=== PATIENT | female | born 1990 | race African-American/Black ===

== ENCOUNTER 2018-02-05 17:30 | Emergency (ER) | payer SELFPAY ==
[2018-02-05 18:12] LABS: Urine Blood NEGATIVE (NEG); Urine Glucose NEGATIVE (NEG); Urine Protein NEGATIVE (NEG); Urine Specific Gravity 1.015 (1.005-1.030)
[2018-02-05] MEDS ORDERED: KETOROLAC 30 MG/ML INJ ONE (18:37)
[2018-02-05] MEDS ORDERED: ONDANSETRON 4 MG/2 ML VIAL ONE (18:37)
[2018-02-05 19:07] LABS: Absolute Lymphocytes (CBC) 0.9 K/uL (0.7-4.9); Absolute Monocytes 0.6 K/uL (0.1-1.3); Absolute Neutrophil 5.7 K/uL (1.8-8.0); Basophils % 0.4 % (0-1.3); Eosinophils % 0.8 % (0-4.4); Lymphocytes % 12.9 % (15.3-44.8); MCH 30.8 pg (27.0-35.0); MCV 88.6 fL (80-100); MPV 8.8 fL (7.6-11.3); Monocytes % 7.8 % (3.3-12.3); RBC Red Blood Cell Count 4.18 M/uL (3.86-4.86)
[2018-02-05 19:22] LABS: ALT/SGPT 15 U/L (12-78); AST/SGOT 15 U/L (15-37); Albumin 3.2 g/dL (3.4-5.0); Alkaline Phosphatase 64 U/L (45-117); Amylase Level 58 U/L (25-115); BUN Blood Urea Nitrogen 10 mg/dL (7-18); Bicarbonate 26 mmol/L (21-32); Bilirubin Direct < 0.1 mg/dL (0-0.2); Bilirubin Total 0.2 mg/dL (0.2-1.0); Glucose Level 86 mg/dL (74-106); Lipase 105 U/L (73-393); Potassium 3.7 mmol/L (3.5-5.1); Protein, Total 7.3 g/dL (6.4-8.2); Sodium Level 139 mmol/L (136-145)
[2018-02-05] MEDS ORDERED: PANTOPRAZOLE 40 MG INJ ONE (19:40)
--- NOTE | 2018-02-05 19:46 | RAD REPORT ---
EXAM DESCRIPTION: US - Abdomen Exam Limited - 02/05/2018 6:36 pm CLINICAL HISTORY: Abdominal pain COMPARISON: Abdomen ultrasound October 2015 FINDINGS: No gallstones, sludge or other abnormalities within the gallbladder lumen. There is no wal l thickening or pericholecystic fluid. No common duct stone or biliary tree dilatation identified. IMPRESSION: Normal gallbladder and biliary tree ultrasound.
--- NOTE | 2018-02-05 20:04 | ER ---
Nurse's Notes [facility] Name: Ada Khanna Age: 27 yrs Sex: Female : 1990 Arrival Date: 02/05/2018 Time: 17:33 Bed 14 Private MD: None, None Diagnosis: Upper abdominal pain, unspecified Presentation: 02/05 17:33 Presenting complaint: Patient states: abd tightness across the upper area. c/o cough sv and lower back pain and left middle back pain. Transition of care: patient was not received from another setting of care. Onset of symptoms was February 05, 2018. Care prior to arrival: None. 17:33 Method Of Arrival: Ambulatory sv 17:33 Acuity: RICHARD 3 sv 18:49 Risk Assessment: Do you want to hurt yourself or someone else? Patient reports no ph desire to harm self or others. Initial Sepsis Screen: Does the patient meet any 2 criteria? No. Patient's initial sepsis screen is negative. Does the patient have a suspected source of infection? No. Patient's initial sepsis screen is negative. 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 - Social history:: Smoking status: Patient uses tobacco products, smokes one-half pack cigarettes per day. - Ebola Screening: : No symptoms or risks identified at this time. Screenin:48 Abuse screen: Denies threats or abuse. Denies injuries from another. Nutritional ph screening: No deficits noted. Tuberculosis screening: No symptoms or risk factors identified. Fall Risk None identified. Assessment: 18:00 General: Appears in no apparent distress. uncomfortable, well groomed, Behavior is ph calm, cooperative, appropriate for age, Denies fever. Pain: Complains of pain in epigastric area Pain radiates to left upper quadrant and right upper quadrant. Neuro: Level of Consciousness is awake, alert, obeys commands, Oriented to person, place, time, situation. Cardiovascular: Capillary refill < 3 seconds in bilateral fingers Patient's skin is warm and dry. Respiratory: Airway is patent Respiratory effort is even, unlabored. GI: Abdomen is flat, non-distended, Bowel sounds present X 4 quads. Abd is soft X 4 quads Abdomen is tender to palpation in epigastric area and right upper quadrant Reports upper abdominal pain, epigastric pain, nausea, Patient currently denies diarrhea, vomiting. : Denies burning with urination, urinary frequency. Derm: Skin is intact, is healthy with good turgor, Skin is pink, warm \T\ dry. Musculoskeletal: Circulation, motion, and sensation intact. Range of motion: limited in all extremities. 19:15 General: Appears in no apparent distress. uncomfortable, Behavior is calm, cooperative, jb4 appropriate for age. Pain: Complains of pain in low back area, right upper quadrant and left upper quadrant Pain does not radiate. Neuro: Level of Consciousness is awake, alert, obeys commands, Oriented to person, place, time, situation. Cardiovascular: Patient's skin is warm and dry. Respiratory: Airway is patent Respiratory effort is even, unlabored, Respiratory pattern is regular, symmetrical. GI: Abdomen is flat, non-distended, Bowel sounds present X 4 quads. Abd is soft X 4 quads Abdomen is tender to palpation in right upper quadrant and left upper quadrant Reports upper abdominal pain, epigastric pain, nausea, Patient currently denies diarrhea, vomiting. :. : No signs and/or symptoms were reported regarding the genitourinary system. Derm: Skin is intact, Skin is pink, warm \T\ dry. Musculoskeletal: Circulation, motion, and sensation intact. 20:19 Reassessment: Patient appears in no apparent distress at this time. Patient and/or jb4 family updated on plan of care and expected duration. Pain level reassessed. Patient is alert, oriented x 3, equal unlabored respirations, skin warm/dry/pink. D/c \T\ F/u instructions to pt. Denies questions or concerns. Patient states feeling better. Vital Signs: 17:34 BP 115 / 98; Pulse 88; Resp 18; Temp 98; Pulse Ox 100% ; Weight 77.11 kg; Height 5 ft. sv 7 in. (170.18 cm); Pain 0/10; 20:00 BP 112 / 75; Pulse 73; Resp 18; Pulse Ox 100% on R/A; jb4 17:34 Body Mass Index 26.63 (77.11 kg, 170.18 cm) sv ED Course: 17:33 Patient arrived in ED. sb2 17:33 None, None is Private Physician. sb2 17:33 Triage completed. sv 17:35 Arm band placed on right wrist. sv 17:36 Kath[facility]C [facility]. kb 17:36 Pacheco Bhatti MD is Attending Physician. kb 17:41 Ursula Carranza RN is Primary Nurse. ph 17:55 Urine collected: clean catch specimen, clear, charli colored, Amount Voided: 100mL. jp3 18:35 Inserted saline lock: 20 gauge in right antecubital area, using aseptic technique. ph Blood collected. 18:36 US Abdomen Limited In Process Unspecified. EDMS 18:49 Patient has correct armband on for positive identification. Placed in gown. Bed in low ph position. Call light in reach. Side rails up X 1. Pulse ox on. NIBP on. Warm blanket given. Pillow given. 19:19 George Núñez, RN is Primary Nurse. jb4 20:00 No provider procedures requiring assistance completed. IV discontinued, intact, jb4 bleeding controlled. Administered Medications: 18:08 Not Given (Physician Discretion): Aspirin Chewable Tablet 324 mg PO once; 81 mg tablets kb x 4 18:40 Drug: TORadol 30 mg Route: IVP; Site: right antecubital; ph 19:41 Follow up: Response: No adverse reaction; Pain is decreased jb4 18:40 Drug: Zofran 4 mg Route: IVP; Site: right antecubital; ph 19:42 Follow up: Response: No adverse reaction jb4 19:41 Drug: ProTONIX 40 mg Route: IVP; Site: right antecubital; jb4 20:22 Follow up: Response: No adverse reaction; Pain is decreased jb4 Outcome: 20:03 Discharge ordered by . kb 20:15 Discharged to home ambulatory. jb4 20:15 Condition: stable 20:15 Discharge instructions given to patient, family, Instructed on discharge instructions, follow up and referral plans. medication usage, Demonstrated understanding of instructions, follow-up care, medications, Prescriptions given X 2. 20:23 Patient left the ED. jb4 Signatures: Dispatcher [employer] EDMS Kathi Mercer FNP-C FNP-Shy Trejo RN RN sv Ursula Carranza RN RN George Núñez, RN RN jb4 Nasra Hernandez sb2 Zhang Sorenson jp3 Corrections: (The following items were deleted from the chart) 17:35 17:33 Presenting complaint: Patient states: abd tightness across the upper area. c/o sv cough. sv 17:35 17:33 Acuity: RICHARD 4 sv sv 20:22 20:19 Reassessment: Patient appears in no apparent distress at this time. Patient jb4 and/or family updated on plan of care and expected duration. Pain level reassessed. Patient is alert, oriented x 3, equal unlabored respirations, skin warm/dry/pink. Patient states feeling better. jb4
--- NOTE | 2018-02-05 20:04 | EDPHYS ---
Physician Documentation [facility] Name: Ada Khanna Age: 27 yrs Sex: Female : 1990 Arrival Date: 02/05/2018 Time: 17:33 Bed 14 Private MD: None, None ED Physician Pacheco Bhatti HPI: 02/05 18:23 This 27 yrs old Black Female presents to ER via Ambulatory with complaints of Abdominal kb Pain, Back Pain. 18:23 The patient presents with abdominal pain in the upper abdomen. Onset: The kb symptoms/episode began/occurred this morning. The symptoms radiate to back. Associated signs and symptoms: Pertinent positives: nausea and vomiting, Pertinent negatives: anorexia, blood in stools, chest pain, constipation, diarrhea, dysuria, fever, headache, hematuria, palpitations, shortness of breath, vaginal discharge, vomiting blood. The symptoms are described as constant. Modifying factors: The symptoms are alleviated by nothing, the symptoms are aggravated by nothing. Severity of pain: At its worst the pain was moderate in the emergency department the pain is unchanged. The patient has experienced similar episodes in the past, a few times, today's symptoms are similar. The patient has not recently seen a physician. 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 - Social history:: Smoking status: Patient uses tobacco products, smokes one-half pack cigarettes per day. - Ebola Screening: : No symptoms or risks identified at this time. ROS: 18:26 Constitutional: Negative for fever, chills, and weight loss, Cardiovascular: Negative kb for chest pain, palpitations, and edema, Respiratory: Negative for shortness of breath, cough, wheezing, and pleuritic chest pain, Back: Negative for injury and pain, : Negative for injury, bleeding, discharge, and swelling, MS/Extremity: Negative for injury and deformity, Skin: Negative for injury, rash, and discoloration, Neuro: Negative for headache, weakness, numbness, tingling, and seizure. 18:26 Abdomen/GI: Positive for abdominal pain, nausea and vomiting, Negative for diarrhea, constipation, abdominal cramps, abdominal distension, anorexia. Exam: 18:26 Constitutional: This is a well developed, well nourished patient who is awake, alert, kb and in no acute distress. Head/Face: Normocephalic, atraumatic. Chest/axilla: Normal chest wall appearance and motion. Nontender with no deformity. No lesions are appreciated. Cardiovascular: Regular rate and rhythm with a normal S1 and S2. No gallops, murmurs, or rubs. Normal PMI, no JVD. No pulse deficits. Respiratory: Lungs have equal breath sounds bilaterally, clear to auscultation and percussion. No rales, rhonchi or wheezes noted. No increased work of breathing, no retractions or nasal flaring. Back: No spinal tenderness. No costovertebral tenderness. Full range of motion. Skin: Warm, dry with normal turgor. Normal color with no rashes, no lesions, and no evidence of cellulitis. MS/ Extremity: Pulses equal, no cyanosis. Neurovascular intact. Full, normal range of motion. Neuro: Awake and alert, GCS 15, oriented to person, place, time, and situation. Cranial nerves II-XII grossly intact. Motor strength 5/5 in all extremities. Sensory grossly intact. Cerebellar exam normal. Normal gait. 18:26 Abdomen/GI: Inspection: abdomen appears normal, Bowel sounds: normal, in all quadrants, Palpation: soft, in all quadrants, moderate abdominal tenderness, in the epigastric area, right upper quadrant and left upper quadrant. Vital Signs: 17:34 BP 115 / 98; Pulse 88; Resp 18; Temp 98; Pulse Ox 100% ; Weight 77.11 kg; Height 5 ft. sv 7 in. (170.18 cm); Pain 0/10; 20:00 BP 112 / 75; Pulse 73; Resp 18; Pulse Ox 100% on R/A; jb4 17:34 Body Mass Index 26.63 (77.11 kg, 170.18 cm) sv MDM: 17:36 Patient medically screened. kb 18:26 Data reviewed: vital signs, nurses notes. Data interpreted: Pulse oximetry: on room air kb is 100 %. Interpretation: normal. 20:03 Counseling: I had a detailed discussion with the patient and/or guardian regarding: the kb historical points, exam findings, and any diagnostic results supporting the discharge/admit diagnosis, lab results, radiology results, the need for outpatient follow up, a family practitioner, a communication signals intelligence, to return to the emergency department if symptoms worsen or persist or if there are any questions or concerns that arise at home. 02/05 17:36 Order name: Amylase, Serum; Complete Time: 19:22 kb 02/05 17:36 Order name: Basic Metabolic Panel; Complete Time: 19:22 kb 02/05 17:36 Order name: CBC with Diff; Complete Time: 19:16 kb 02/05 17:36 Order name: Hepatic Function; Complete Time: 19:22 kb 02/05 17:36 Order name: Lipase; Complete Time: 19:22 kb 02/05 18:02 Order name: Urine Dipstick--Ancillary (enter results); Complete Time: 18:13 eb 02/05 17:36 Order name: Urine Test (obtain specimen); Complete Time: 18:45 kb 02/05 17:36 Order name: IV Saline Lock; Complete Time: 18:45 kb 02/05 18:02 Order name: Urine --Ancillary (enter results); Complete Time: 18:13 eb 02/05 18:04 Order name: US Abdomen Limited; Complete Time: 19:47 kb 02/05 17:36 Order name: Labs collected and sent; Complete Time: 18:45 kb 02/05 17:36 Order name: Urine Dipstick-Ancillary (obtain specimen); Complete Time: 18:45 kb Administered Medications: 18:08 Not Given (Physician Discretion): Aspirin Chewable Tablet 324 mg PO once; 81 mg tablets kb x 4 18:40 Drug: TORadol 30 mg Route: IVP; Site: right antecubital; ph 19:41 Follow up: Response: No adverse reaction; Pain is decreased jb4 18:40 Drug: Zofran 4 mg Route: IVP; Site: right antecubital; ph 19:42 Follow up: Response: No adverse reaction jb4 19:41 Drug: ProTONIX 40 mg Route: IVP; Site: right antecubital; jb4 20:22 Follow up: Response: No adverse reaction; Pain is decreased jb4 Disposition: 02/05/18 20:03 Discharged to Home. Impression: Upper abdominal pain, unspecified. - Condition is Stable. - Discharge Instructions: Gastroesophageal Reflux Disease, Adult, Abdominal Pain, Adult, [id number]. - Prescriptions for Protonix 40 mg Oral Tablet - take 1 tablet by ORAL route once daily; 30 tablet. Zofran 4 mg Oral Tablet - take 1 tablet by ORAL route every 6 hours As needed; 20 tablet. - Work release form, Medication Reconciliation Form, Thank You Letter, Antibiotic Education, Prescription Opioid Use form. - Follow up: Emergency Department; When: As needed; Reason: Worsening of condition. Follow up: Private Physician; When: 2 - 3 days; Reason: Recheck today's complaints, Continuance of care, Re-evaluation by your physician. Addendum: 02/09/2018 18:23 Co-signature as Attending Physician, Pacheco Bhatti MD. m a2 Signatures: Dispatcher [employer] EDMS Kathi Mercer, JOSUE-C SENIOR JAVASCRIPT ENGINEER-Shy Trejo, RN RN Ursula Clrak RN RN George Smith RN RN jb4 Pacheco Bhatti MD MD ma2 Corrections: (The following items were deleted from the chart) 02/05 20:23 20:03 02/05/2018 20:03 Discharged to Home. Impression: Upper abdominal pain, jb4 unspecified. Condition is Stable. Forms are Medication Reconciliation Form, Thank You Letter, Antibiotic Education, Prescription Opioid Use. Follow up: Emergency Department; When: As needed; Reason: Worsening of condition. Follow up: Private Physician; When: 2 - 3 days; Reason: Recheck today's complaints, Continuance of care, Re-evaluation by your physician. kb
== END 2018-02-05 20:23 | disposition home or self-care (01) ==
LOC: ER 17:30
DX: R10.10 Upper abdominal pain, unspecified (principal); F17.210 Nicotine dependence, cigarettes, uncomplicated
CPT/HCPCS: 36415; 76705; 80048; 80076; 81003; 81025; 82150; 83690; 85025; 96374; 96375; 99284; C9113; J2405

== ENCOUNTER 2018-06-04 16:46 | Emergency (ER) | payer SELFPAY ==
--- NOTE | 2018-06-04 17:23 | EDPHYS ---
Physician Documentation [facility] Name: Ada Khanna Age: 27 yrs Sex: Female : 1990 Arrival Date: 06/04/2018 Time: 16:49 Bed 13 Private MD: ED Physician Roberto Hernandez HPI: 06/04 17:21 This 27 yrs old Black Female presents to ER via Ambulatory with complaints of Left Ear pm1 Pain. 17:21 The patient presents with pain. The complaints affect the left ear. Onset: The pm1 symptoms/episode began/occurred 2 day(s) ago. Modifying factors: The symptoms are alleviated by nothing, the symptoms are aggravated by touching left ear. Associated signs and symptoms: Pertinent negatives: cough, fever, rhinorrhea, sinus trouble, shortness of breath, sore throat, vertigo, vomiting. Severity of symptoms: in the emergency department the symptoms are worse. The patient has not experienced similar symptoms in the past. The patient has not recently seen a physician. patient with left ear pain for the past 2 days. Noticed that she is starting to have noticed onset of right ear pain today. . 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 - Social history:: Smoking status: Patient uses tobacco products, smokes one-half pack cigarettes per day. - Ebola Screening: : No symptoms or risks identified at this time. ROS: 17:21 Constitutional: Negative for fever, chills, and weight loss, Eyes: Negative for injury, pm1 pain, redness, and discharge. 17:21 Neck: Negative for injury, pain, and swelling, Cardiovascular: Negative for chest pain, palpitations, and edema, Respiratory: Negative for shortness of breath, cough, wheezing, and pleuritic chest pain, Abdomen/GI: Negative for abdominal pain, nausea, vomiting, diarrhea, and constipation, Back: Negative for injury and pain, : Negative for injury, bleeding, discharge, and swelling, MS/Extremity: Negative for injury and deformity, Skin: Negative for injury, rash, and discoloration, Neuro: Negative for headache, weakness, numbness, tingling, and seizure. 17:21 ENT: Positive for ear pain, Negative for drainage from ear(s), tinnitus, nasal discharge, rhinorrhea, sinus congestion, sinus pain, sore throat, difficulty swallowing, difficulty handling secretions, hoarseness. Exam: 17:21 Constitutional: This is a well developed, well nourished patient who is awake, alert, pm1 and in no acute distress. Head/Face: Normocephalic, atraumatic. Eyes: Pupils equal round and reactive to light, extra-ocular motions intact. Lids and lashes normal. Conjunctiva and sclera are non-icteric and not injected. Cornea within normal limits. Periorbital areas with no swelling, redness, or edema. 17:21 Neck: Trachea midline, no thyromegaly or masses palpated, and no cervical lymphadenopathy. Supple, full range of motion without nuchal rigidity, or vertebral point tenderness. No Meningismus. Chest/axilla: Normal chest wall appearance and motion. Nontender with no deformity. No lesions are appreciated. Cardiovascular: Regular rate and rhythm with a normal S1 and S2. No gallops, murmurs, or rubs. Normal PMI, no JVD. No pulse deficits. Respiratory: Lungs have equal breath sounds bilaterally, clear to auscultation and percussion. No rales, rhonchi or wheezes noted. No increased work of breathing, no retractions or nasal flaring. Back: No spinal tenderness. No costovertebral tenderness. Full range of motion. Skin: Warm, dry with normal turgor. Normal color with no rashes, no lesions, and no evidence of cellulitis. MS/ Extremity: Pulses equal, no cyanosis. Neurovascular intact. Full, normal range of motion. 17:21 ENT: External ear(s): are unremarkable, Ear canal(s): erythema, that is moderate, of the left canal, TM's: bulging, on the left, erythema, that is moderate, on the left, Examination of the other ear shows no obvious abnormality, Nose: is normal, no drainage, no edema, Mouth: no acute changes, Posterior pharynx: is normal, no erythema, no exudate, no peritonsilar mass, no pooling of secretions, no swelling, no acute changes. 17:21 Neuro: Orientation: is normal, Motor: is normal, moves all fours, Gait: is steady, at a normal pace, without difficulty. Vital Signs: 16:53 BP 133 / 86; Pulse 98; Resp 16 S; Temp 99.2(O); Pulse Ox 99% on R/A; Weight 80.74 kg jl7 (R); Height 5 ft. 7 in. (170.18 cm) (R); Pain 10/10; 18:09 BP 132 / 77; Pulse 87; Resp 17; Pulse Ox 99% on R/A; aj 16:53 Body Mass Index 27.88 (80.74 kg, 170.18 cm) jl7 MDM: 17:16 Patient medically screened. pm1 17:21 Data reviewed: vital signs. Data interpreted: Pulse oximetry: on room air is 99 %. pm1 Interpretation: normal. Counseling: I had a detailed discussion with the patient and/or guardian regarding: the historical points, exam findings, and any diagnostic results supporting the discharge/admit diagnosis, the need for outpatient follow up, to return to the emergency department if symptoms worsen or persist or if there are any questions or concerns that arise at home. Administered Medications: 17:42 Drug: Rocephin (cefTRIAXone) 1 grams Route: IM; Site: right gluteus; aj 18:10 Follow up: Response: No adverse reaction aj 17:43 Drug: TORadol 60 mg Route: IM; Site: left gluteus; aj 18:10 Follow up: Response: Pain is decreased aj Disposition: 18:16 Co-signature as Attending Physician, Roberto Hernandez MD. rn Disposition: 06/04/18 17:22 Discharged to Home. Impression: Otitis media, unspecified, left ear, Unspecified otitis externa, left ear. - Condition is Stable. - Discharge Instructions: Otitis Media, Adult, Otitis Externa, Ear Drops, Adult, [id number]. - Prescriptions for Augmentin 875- 125 mg Oral Tablet - take 1 tablet by ORAL route every 12 hours for 10 days; 20 tablet. Cortisporin 3.5- 10,000-1 mg/mL-unit/mL-% Otic solution - instill 4 drop by OTIC route 4 times per day for 10 days; 1 bottle. Tylenol- Codeine #3 300-30 mg Oral Tablet - take 2 tablets by ORAL route every 6 hours As needed; 20 tablet. - Medication Reconciliation Form, Thank You Letter, Antibiotic Education, Prescription Opioid Use form. - Follow up: Emergency Department; When: As needed; Reason: Worsening of condition. Follow up: Private Physician; When: 2 - 3 days; Reason: Recheck today's complaints, Continuance of care, Re-evaluation by your physician. - Problem is new. - Symptoms have improved. Signatures: Ethel Eli RN RN Roberto Salcido MD MD rn Marinas, Patrick, NP PHYS ASST pm1 Zehra Mcgee RN RN jl7 Corrections: (The following items were deleted from the chart) 18:11 17:22 06/04/2018 17:22 Discharged to Home. Impression: Otitis media, unspecified, left aj ear; Unspecified otitis externa, left ear. Condition is Stable. Forms are Medication Reconciliation Form, Thank You Letter, Antibiotic Education, Prescription Opioid Use. Follow up: Emergency Department; When: As needed; Reason: Worsening of condition. Follow up: Private Physician; When: 2 - 3 days; Reason: Recheck today's complaints, Continuance of care, Re-evaluation by your physician. Problem is new. Symptoms have improved. pm1
--- NOTE | 2018-06-04 17:23 | ER ---
Nurse's Notes [facility] Name: Ada Khanna Age: 27 yrs Sex: Female : 1990 Arrival Date: 06/04/2018 Time: 16:49 Bed 13 Private MD: Diagnosis: Otitis media, unspecified, left ear;Unspecified otitis externa, left ear Presentation: 06/04 16:52 Presenting complaint: Patient states: Left ear pain x 2 days started radiating to right jl7 ear. Transition of care: patient was not received from another setting of care. Onset of symptoms was June 03, 2018. Risk Assessment: Do you want to hurt yourself or someone else? Patient reports no desire to harm self or others. Initial Sepsis Screen: Does the patient meet any 2 criteria? No. Patient's initial sepsis screen is negative. Does the patient have a suspected source of infection? No. Patient's initial sepsis screen is negative. Care prior to arrival: None. 16:52 Method Of Arrival: Ambulatory [facility] 16:52 Acuity: RICHARD 4 jl7 Triage Assessment: 16:53 General: Appears in no apparent distress. uncomfortable, Behavior is calm, cooperative, jl7 appropriate for age. Pain: Complains of pain in left ear Pain currently is 10 out of 10 on a pain scale. EENT: Reports pain in left ear. 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 - Social history:: Smoking status: Patient uses tobacco products, smokes one-half pack cigarettes per day. - Ebola Screening: : No symptoms or risks identified at this time. Screenin:55 Abuse screen: Denies threats or abuse. Denies injuries from another. Nutritional jl7 screening: No deficits noted. Tuberculosis screening: No symptoms or risk factors identified. Fall Risk None identified. Assessment: 17:46 General: Appears in no apparent distress. uncomfortable, Behavior is calm, cooperative, aj appropriate for age. Neuro: Level of Consciousness is awake, alert, obeys commands, Oriented to person, place, time, situation, Appropriate for age. Respiratory: Airway is patent Respiratory effort is even, unlabored, Respiratory pattern is regular, symmetrical. EENT: Reports nasal congestion nasal discharge pain in left ear. Derm: Skin is intact, is healthy with good turgor, Skin is pink, warm \T\ dry. normal. 18:09 Reassessment: Patient appears in no apparent distress at this time. No changes from aj previously documented assessment. Patient and/or family updated on plan of care and expected duration. Pain level reassessed. Patient is alert, oriented x 3, equal unlabored respirations, skin warm/dry/pink. Patient states feeling better. Patient states symptoms have improved. Vital Signs: 16:53 BP 133 / 86; Pulse 98; Resp 16 S; Temp 99.2(O); Pulse Ox 99% on R/A; Weight 80.74 kg jl7 (R); Height 5 ft. 7 in. (170.18 cm) (R); Pain 10/10; 18:09 BP 132 / 77; Pulse 87; Resp 17; Pulse Ox 99% on R/A; aj 16:53 Body Mass Index 27.88 (80.74 kg, 170.18 cm) jl7 ED Course: 16:49 Patient arrived in ED. mr 16:52 Triage completed. jl7 16:53 Arm band placed on right wrist. jl7 16:55 Zehra Mcgee, GHAZALA is Primary Nurse. jl7 16:55 Patient has correct armband on for positive identification. Bed in low position. Call [facility] light in reach. Side rails up X 1. 16:56 Mickey Cantu NP is PHCP. pm1 16:56 Roberto Hernandez MD is Attending Physician. pm1 17:46 No provider procedures requiring assistance completed. Patient did not have IV access aj during this emergency room visit. Administered Medications: 17:42 Drug: Rocephin (cefTRIAXone) 1 grams Route: IM; Site: right gluteus; aj 18:10 Follow up: Response: No adverse reaction aj 17:43 Drug: TORadol 60 mg Route: IM; Site: left gluteus; aj 18:10 Follow up: Response: Pain is decreased aj Outcome: 17:22 Discharge ordered by . pm1 18:09 Discharged to home ambulatory. aj 18:09 Condition: good 18:09 Discharge instructions given to patient, Instructed on discharge instructions, follow up and referral plans. medication usage, Demonstrated understanding of instructions, follow-up care, medications, Prescriptions given X 3. 18:11 Patient left the ED. aj Signatures: Ethel Eli RN RN aj Rivera, Mary mr Lavern Braun RN RN aa5 Mickey Cantu, COURTNEY PORT PATROL OFFICER pm1 Zehra Mcgee RN RN jl7 Corrections: (The following items were deleted from the chart) 18:12 16:59 Lavern Braun, GHAZALA is Primary Nurse. aa5 aa5
[2018-06-04] MEDS ORDERED: KETOROLAC 30 MG/ML INJ ONE ×2 (17:46→18:13)
[2018-06-04] MEDS ORDERED: LIDOCAINE 1% MPF 5 ML VIAL ONE (17:46)
[2018-06-04] MEDS ORDERED: CEFTRIAXONE 1000 MG/VIAL ONE (17:46)
== END 2018-06-04 18:11 | disposition home or self-care (01) ==
LOC: ER 16:46
DX: H66.92 Otitis media, unspecified, left ear (principal); H60.92 Unspecified otitis externa, left ear; F17.210 Nicotine dependence, cigarettes, uncomplicated
CPT/HCPCS: 96372; 99283

== ENCOUNTER 2018-08-04 09:59 | Emergency (ER) | payer SELFPAY ==
--- NOTE | 2018-08-04 10:15 | ER ---
Nurse's Notes [facility] Name: Ada Khanna Age: 27 yrs Sex: Female : 1990 Arrival Date: 08/04/2018 Time: 10:10 Bed DIS1 Private MD: Diagnosis: Influenza exposure Presentation: 08/04 10:10 Presenting complaint: Patient states: i am here with my son but i need to get checked tw2 out too. Transition of care: patient was not received from another setting of care. Onset of symptoms was August 04, 2018. Risk Assessment: Do you want to hurt yourself or someone else? Patient reports no desire to harm self or others. Initial Sepsis Screen: Does the patient meet any 2 criteria? No. Patient's initial sepsis screen is negative. Does the patient have a suspected source of infection? No. Patient's initial sepsis screen is negative. Care prior to arrival: None. 10:10 Method Of Arrival: Ambulatory tw2 10:10 Onset of symptoms was August 04, 2018 at 10:10. tw2 10:11 Acuity: RICHARD 4 aa5 Triage Assessment: 10:10 General: Appears in no apparent distress. Behavior is calm, cooperative, appropriate tw2 for age. 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 tw2 Historical: - Allergies: 19:35 No Known Allergies; tw2 - Home Meds: 19:35 control [Active]; tw2 - PMHx: 19:35 None; tw2 - Immunization history:: Adult Immunizations. - Social history:: Smoking status: . - Family history:: not pertinent. - Ebola Screening: : Patient denies exposure to infectious person. - Hospitalizations: : No recent hospitalization is reported. Screenin:10 Abuse screen: Denies threats or abuse. Nutritional screening: No deficits noted. tw2 Tuberculosis screening: No symptoms or risk factors identified. Fall Risk None identified. Assessment: 10:10 General: Appears in no apparent distress. well groomed, Behavior is calm, cooperative, tw2 appropriate for age. Pain: Denies pain. Neuro: Level of Consciousness is awake, alert, obeys commands, Oriented to. Respiratory: Reports cough that is Airway is patent Respiratory effort is even, unlabored, Respiratory pattern is regular, symmetrical. EENT: Reports nasal congestion nasal discharge. Musculoskeletal: Reports "body aches". 10:25 Reassessment: Patient appears in no apparent distress at this time. No changes from tw2 previously documented assessment. Patient and/or family updated on plan of care and expected duration. Pain level reassessed. Patient is alert, oriented x 3, equal unlabored respirations, skin warm/dry/pink. Vital Signs: 10:10 Pulse Ox 100% on R/A; tw2 10:34 BP 115 / 72; Pulse 89; Resp 19; Temp 97.7(TE); Pulse Ox 98% on R/A; jb1 ED Course: 10:10 Patient arrived in ED. aa5 10:10 Roberto Hernandez MD is Attending Physician. rn 10:10 Arm band placed on. tw2 10:10 Bed in low position. Call light in reach. tw2 10:11 Triage completed. aa5 10:24 Candida Wallace, RN is Primary Nurse. tw2 10:25 No provider procedures requiring assistance completed. Patient did not have IV access tw2 during this emergency room visit. Administered Medications: No medications were administered Outcome: 10:14 Discharge ordered by . rn 10:25 Patient left the ED. tw2 10:25 Discharged to home ambulatory. tw2 10:25 Condition: stable 10:25 Discharge instructions given to patient, Instructed on discharge instructions, follow up and referral plans. medication usage, Demonstrated understanding of instructions, follow-up care, medications, Prescriptions given X 1. Signatures: Blayne Vang jb1 Roberto Hernandez MD MD rn Calderon, Audri, RN RN aa5 Candida Wallace RN RN tw2
--- NOTE | 2018-08-04 10:15 | EDPHYS ---
Physician Documentation [facility] Name: Ada Khanna Age: 27 yrs Sex: Female : 1990 Arrival Date: 08/04/2018 Time: 10:10 Bed DIS1 Private MD: ED Physician Roberto Hernandez HPI: 08/04 10:11 This 27 yrs old Black Female presents to ER via Unassigned with complaints of Flu rn exposure. 10:11 Patient's son here in ER for flu like symptoms, patient signed in to get tested for rn flu, is asymptomatic, no sob. . Onset: The symptoms/episode began/occurred at an unknown time. The patient has not experienced similar symptoms in the past. 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 tw2 Historical: - Allergies: 19:35 No Known Allergies; tw2 - Home Meds: 19:35 control [Active]; tw2 - PMHx: 19:35 None; tw2 - Immunization history:: Adult Immunizations. - Social history:: Smoking status: . - Family history:: not pertinent. - Ebola Screening: : Patient denies exposure to infectious person. - Hospitalizations: : No recent hospitalization is reported. ROS: 10:11 Constitutional: Negative for fever, chills, and weight loss, Eyes: Negative for injury, rn pain, redness, and discharge, Neck: Negative for injury, pain, and swelling, Cardiovascular: Negative for chest pain, palpitations, and edema, Respiratory: Negative for shortness of breath, cough, wheezing, and pleuritic chest pain, Abdomen/GI: Negative for abdominal pain, nausea, vomiting, diarrhea, and constipation, MS/Extremity: Negative for injury and deformity, Skin: Negative for injury, rash, and discoloration, Neuro: Negative for headache, weakness, numbness, tingling, and seizure. Exam: 10:11 Constitutional: This is a well developed, well nourished patient who is awake, alert, rn and in no acute distress. ENT: MMM Respiratory: No increased work of breathing, no retractions or nasal flaring. Skin: Warm, dry Neuro: Awake and alert, GCS 15 Vital Signs: 10:10 Pulse Ox 100% on R/A; tw2 10:34 BP 115 / 72; Pulse 89; Resp 19; Temp 97.7(TE); Pulse Ox 98% on R/A; jb1 MDM: 10:10 Patient medically screened. rn 10:11 Differential Diagnosis flu, exposure to flu. Data reviewed: vital signs, nurses notes, rn and as a result, I will discharge patient. Counseling: I had a detailed discussion with the patient and/or guardian regarding: the historical points, exam findings, and any diagnostic results supporting the discharge/admit diagnosis, the need for outpatient follow up, to return to the emergency department if symptoms worsen or persist or if there are any questions or concerns that arise at home. Special discussion: I discussed with the patient/guardian in detail that at this point there is no indication for admission to the hospital. It is understood, however, that if the symptoms persist or worsen the patient needs to return immediately for re-evaluation. Administered Medications: No medications were administered Disposition: 08/04/18 10:14 Discharged to Home. Impression: Influenza exposure. - Condition is Stable. - Prescriptions for Tamiflu 75 mg Oral Capsule - take 1 tablet by ORAL route once daily for 7 days; 7 tablet. - Medication Reconciliation Form, Thank You Letter, Antibiotic Education, Prescription Opioid Use form. - Work release form (08/04/18 13:00). ss - Follow up: Private Physician; When: As needed; Reason: Recheck today's complaints, Re-evaluation by your physician. - Problem is new. - Symptoms have improved. Signatures: Roberto Hernandez MD MD rn Wise, Tara, RN RN tw2 Estrella Islas RN Corrections: (The following items were deleted from the chart) 10:25 10:14 08/04/2018 10:14 Discharged to Home. Impression: Influenza exposure. Condition is tw2 Stable. Forms are Medication Reconciliation Form, Thank You Letter, Antibiotic Education, Prescription Opioid Use. Follow up: Private Physician; When: As needed; Reason: Recheck today's complaints, Re-evaluation by your physician. Problem is new. Symptoms have improved. rn
== END 2018-08-04 10:25 | disposition home or self-care (01) ==
LOC: ER 09:59
DX: Z20.828 Contact with and (suspected) exposure to other viral communicable diseases (principal)
CPT/HCPCS: 99282

== ENCOUNTER 2019-03-05 18:53 | Emergency (ER) | payer SELFPAY ==
[2019-03-05 20:04] LABS: Urine Blood NEGATIVE (NEG); Urine Glucose NEGATIVE (NEG); Urine Protein NEGATIVE (NEG); Urine Specific Gravity 1.025 (1.005-1.030); Urine pH 6.5 (5.0-7.0)
[2019-03-05 20:35] LABS: Basophils % 0.4 % (0-1.3); Hematocrit 35.7 % (36.0-45.0); Lymphocytes % 18.5 % (15.3-44.8); MPV 8.2 fL (7.6-11.3)
[2019-03-05 21:10] LABS: BUN Blood Urea Nitrogen 11 mg/dL (7-18); Bicarbonate 27 mmol/L (21-32); Glucose Level 95 mg/dL (74-106); HCG, Quantitative 69978 mIU/mL (1-3); Potassium 3.4 mmol/L (3.5-5.1); Sodium Level 137 mmol/L (136-145)
[2019-03-05] MEDS ORDERED: ACETAMINOPHEN 500 MG TAB ONE (22:29)
[2019-03-05 23:00] LABS: Urine Amorphous Sediment 2+ /HPF (NONE SEEN); Urine Bacteria 20-50 /HPF (<20); Urine Culture Reflex Order REFLEXED; Urine Mucus 1+ /HPF (NONE SEEN)
--- NOTE | 2019-03-05 23:14 | ER ---
Nurse's Notes [facility] Name: Ada Khanna Age: 28 yrs Sex: Female : 1990 Arrival Date: 03/05/2019 Time: 18:55 Bed 19 Private MD: Diagnosis: Threatened ; related conditions, unspecified, first trimester;Unspecified abdominal pain Presentation: 03/05 18:56 Transition of care: patient was not received from another setting of care. Risk sv Assessment: Do you want to hurt yourself or someone else? Patient reports no desire to harm self or others. Care prior to arrival: None. 18:56 Method Of Arrival: Ambulatory sv 18:56 Acuity: RICHARD 3 sv 18:57 Presenting complaint: Patient states: vaginal bleeding spotting after sexual sv intercourse and then started having abd cramping afterwards, nausea in the mornings. Onset of symptoms was March 05, 2019. Initial Sepsis Screen: Does the patient meet any 2 criteria? No. Patient's initial sepsis screen is negative. Does the patient have a suspected source of infection? No. Patient's initial sepsis screen is negative. Triage Assessment: 19:00 General: Appears in no apparent distress. uncomfortable, Behavior is calm, cooperative, sv appropriate for age. Pain: Complains of pain in abdomen. Neuro: Level of Consciousness is awake, alert, obeys commands, Gait is steady. Respiratory: Respiratory effort is even, unlabored. GI: Reports cramping, nausea. 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 - Social history:: Smoking status: Patient uses tobacco products. - Ebola Screening: : Patient negative for fever greater than or equal to 101.5 degrees Fahrenheit, and additional compatible Ebola Virus Disease symptoms Patient denies exposure to infectious person. Screenin:18 Abuse screen: Denies threats or abuse. Denies injuries from another. Nutritional wh screening: No deficits noted. Tuberculosis screening: No symptoms or risk factors identified. Fall Risk None identified. Assessment: 20:21 General: Appears in no apparent distress. comfortable. Pain: Complains of pain in suprapubic area Pain radiates to abdomen Pain currently is 5 out of 10 on a pain scale. Neuro: Level of Consciousness is awake, alert, obeys commands. Cardiovascular: Heart tones S1 S2. Respiratory: Airway is patent Respiratory effort is even, unlabored, Respiratory pattern is regular, symmetrical, Breath sounds are clear bilaterally. GI: Abdomen is flat, non-distended, Bowel sounds present X 4 quads. Abd is soft and non tender X 4 quads. : No signs and/or symptoms were reported regarding the genitourinary system. EENT: No signs and/or symptoms were reported regarding the EENT system. Derm: Skin is intact, is healthy with good turgor, Skin is pink, warm \T\ dry. normal. Musculoskeletal: Circulation, motion, and sensation intact. 21:20 Reassessment: Patient appears in no apparent distress at this time. No changes from previously documented assessment. Patient and/or family updated on plan of care and expected duration. Pain level reassessed. Patient is alert, oriented x 3, equal unlabored respirations, skin warm/dry/pink. 22:14 Reassessment: Patient appears in no apparent distress at this time. No changes from previously documented assessment. Patient and/or family updated on plan of care and expected duration. Pain level reassessed. Patient is alert, oriented x 3, equal unlabored respirations, skin warm/dry/pink. 23:28 Reassessment: Patient appears in no apparent distress at this time. No changes from previously documented assessment. Patient and/or family updated on plan of care and expected duration. Pain level reassessed. Patient is alert, oriented x 3, equal unlabored respirations, skin warm/dry/pink. Patient states feeling better. Vital Signs: 18:59 BP 132 / 68; Pulse 92; Resp 16; Temp 97.7; Pulse Ox 99% ; Weight 80.29 kg; Height 5 ft. sv 7 in. (170.18 cm); Pain 6/10; 20:22 BP 117 / 65; Pulse 79; Resp 18; Pulse Ox 100% on R/A; wh 21:15 BP 110 / 65; Pulse 77; Resp 18; Pulse Ox 99% on R/A; wh 22:15 BP 118 / 76; Pulse 80; Resp 16; Pulse Ox 99% on R/A; wh 18:59 Body Mass Index 27.72 (80.29 kg, 170.18 cm) ED Course: 18:55 Patient arrived in ED. as 18:56 Triage completed. sv 18:57 Arm band placed on. sv 19:12 Thierno Rainey PA is PHCP. cp 19:12 Roberto Hernandez MD is Attending Physician. cp 19:13 Richar San is Primary Nurse. wh 20:20 Patient has correct armband on for positive identification. Placed in gown. Bed in low wh position. Call light in reach. Side rails up X 1. Pulse ox on. NIBP on. 20:22 Inserted saline lock: 20 gauge in right antecubital area, using aseptic technique. oe Blood collected. 21:52 US Transvaginal Study (Probe) In Process Unspecified. EDMS 23:10 Vivian Randle MD is Referral Physician. cp 23:28 No provider procedures requiring assistance completed. IV discontinued, intact, wh bleeding controlled, No redness/swelling at site. Administered Medications: 22:30 Drug: Tylenol 1000 mg Route: PO; 23:29 Follow up: Response: No adverse reaction Outcome: 23:13 Discharge ordered by MD. cp 23:28 Discharged to home ambulatory, with family. 23:28 Condition: good 23:28 Discharge instructions given to patient, family, Instructed on discharge instructions, follow up and referral plans. medication usage, POC Threatened Miscarriage, Vaginal bleeding during and pelvic rest Demonstrated understanding of instructions, follow-up care, medications, POC Prescriptions given X 2. 23:30 Patient left the ED. Signatures: Dispatcher [employer] EDSD Shy Carrillo, GHAZALA RN Catherine Nowak as Thierno Rainey PA PA cp Duy James oe Richar San
--- NOTE | 2019-03-05 23:14 | EDPHYS ---
Physician Documentation [facility] Name: Ada Khanna Age: 28 yrs Sex: Female : 1990 Arrival Date: 03/05/2019 Time: 18:55 Bed 19 Private MD: ED Physician Roberto Hernandez HPI: 03/05 19:50 This 28 yrs old Black Female presents to ER via Ambulatory with complaints of Abdominal cp Cramping, Nausea. 19:50 The patient presents with vaginal bleeding that is light. cp 19:50 Onset: The symptoms/episode began/occurred today. Associated signs and symptoms: cp Pertinent positives: cramping, Pertinent negatives: diarrhea, dysuria, fever, hematuria, vomiting. Severity of symptoms: in the emergency department the symptoms are unchanged, despite home interventions. The patient is sexually active, reportedly has a single partner. The patient's method of control includes nothing. 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 - Social history:: Smoking status: Patient uses tobacco products. - Ebola Screening: : Patient negative for fever greater than or equal to 101.5 degrees Fahrenheit, and additional compatible Ebola Virus Disease symptoms Patient denies exposure to infectious person. ROS: 20:00 Constitutional: Negative for body aches, chills, fever, poor PO intake. cp 20:00 Cardiovascular: Negative for chest pain, palpitations. cp 20:00 Respiratory: Negative for cough, shortness of breath. 20:00 Abdomen/GI: Positive for abdominal cramps, Negative for nausea, vomiting, and diarrhea. 20:00 : Positive for vaginal bleeding, Negative for urinary symptoms. 20:00 All other systems are negative. Exam: 20:05 Constitutional: The patient appears in no acute distress, alert, awake, non-toxic, well cp developed, well nourished. 20:05 Head/Face: Normocephalic, atraumatic. cp 20:05 Eyes: Periorbital structures: appear normal, Conjunctiva: normal, no exudate, no injection, Sclera: no appreciated abnormality, Lids and lashes: appear normal, bilaterally. 20:05 ENT: External ear(s): are unremarkable, Nose: is normal, Mouth: is normal, Posterior pharynx: is normal. 20:05 Chest/axilla: Inspection: normal, Palpation: is normal, no crepitus, no tenderness. 20:05 Cardiovascular: Rate: normal, Rhythm: regular. 20:05 Respiratory: the patient does not display signs of respiratory distress, Respirations: normal, no use of accessory muscles, no retractions, no splinting, no tachypnea, labored breathing, is not present, Breath sounds: are clear throughout, no decreased breath sounds, no stridor, no wheezing. 20:05 Abdomen/GI: Inspection: abdomen appears normal, Bowel sounds: active, all quadrants, Palpation: soft, in all quadrants, mild abdominal tenderness, in the right lower quadrant and left lower quadrant. 20:05 Back: pain, is absent, ROM is normal. Vital Signs: 18:59 BP 132 / 68; Pulse 92; Resp 16; Temp 97.7; Pulse Ox 99% ; Weight 80.29 kg; Height 5 ft. sv 7 in. (170.18 cm); Pain 6/10; 20:22 BP 117 / 65; Pulse 79; Resp 18; Pulse Ox 100% on R/A; wh 21:15 BP 110 / 65; Pulse 77; Resp 18; Pulse Ox 99% on R/A; wh 22:15 BP 118 / 76; Pulse 80; Resp 16; Pulse Ox 99% on R/A; wh 18:59 Body Mass Index 27.72 (80.29 kg, 170.18 cm) sv MDM: 19:19 Patient medically screened. cp 23:00 Differential diagnosis: ectopic , ovarian cyst, pelvic inflammatory disease. cp 23:12 Data reviewed: vital signs, nurses notes, lab test result(s), radiologic studies, cp ultrasound, and as a result, I will discharge patient. 03/05 19:48 Order name: Urine Dipstick--Ancillary (enter results); Complete Time: 21:18 em1 03/05 22:20 Interpretation: Normal except: UESTR TRACE. cp 03/05 19:48 Order name: Urine --Ancillary (enter results); Complete Time: 21:18 em1 03/05 21:59 Interpretation: Abnormal: URINE PREG POS. cp 03/05 19:48 Order name: Quantitative Hcg; Complete Time: 21:18 03/05 21:59 Interpretation: HCGQ 16529; Reviewed. 03/05 19:48 Order name: Abo/rh Typing; Complete Time: 21:18 03/05 21:59 Interpretation: Reviewed. 03/05 19:48 Order name: Basic Metabolic Panel; Complete Time: 21:18 03/05 21:59 Interpretation: Normal except: K 3.4. 03/05 19:48 Order name: CBC with Diff; Complete Time: 21:18 03/05 19:48 Order name: Urine Test (obtain specimen); Complete Time: 20:13 03/05 19:48 Order name: IV Saline Lock; Complete Time: 20:13 03/05 19:48 Order name: Labs collected and sent; Complete Time: 20:13 03/05 19:48 Order name: NPO; Complete Time: 20:13 03/05 21:19 Order name: US Transvaginal Study (Probe) 03/05 22:21 Order name: Urine Microscopic Only; Complete Time: 23:09 03/05 23:01 Order name: Urine Culture EDLA 03/05 19:48 Order name: Urine Dipstick-Ancillary (obtain specimen); Complete Time: 20:13 03/05 22:20 Order name: PO challenge; Complete Time: 22:30 cp Administered Medications: 22:30 Drug: Tylenol 1000 mg Route: PO; 23:29 Follow up: Response: No adverse reaction Disposition: 23:45 Chart complete. Disposition: 03/05/19 23:13 Discharged to Home. Impression: Threatened , related conditions, unspecified, first trimester, Unspecified abdominal pain. - Condition is Stable. - Discharge Instructions: Abdominal Pain, Adult, Threatened Miscarriage, Vaginal Bleeding During , First Trimester, Pelvic Rest. - Prescriptions for Vitamin 27- 0.8 mg Oral Tablet - take 1 tablet by ORAL route once daily; 60 tablet. Macrobid 100 mg Oral Capsule - take 1 capsule by ORAL route every 12 hours for 7 days; 14 capsule. - Medication Reconciliation Form, Thank You Letter, Antibiotic Education, Prescription Opioid Use form. - Follow up: Vivian Randle MD; When: 1 week; Reason: Recheck today's complaints. - Problem is new. - Symptoms have improved. Addendum: 03/07/2019 00:50 Co-signature as Attending Physician, Roberto Hernandez MD. r n Signatures: Dispatcher [employer] Shy Lanidn RN RN Roberto Coker MD MD rn Thierno Rainey PA PA blas San, Richar heredia Corrections: (The following items were deleted from the chart) 03/05 23:30 23:13 03/05/2019 23:13 Discharged to Home. Impression: Threatened ; wh related conditions, unspecified, first trimester; Unspecified abdominal pain. Condition is Stable. Forms are Medication Reconciliation Form, Thank You Letter, Antibiotic Education, Prescription Opioid Use. Follow up: Mini Rekhi; When: 1 week; Reason: Recheck today's complaints. Problem is new. Symptoms have improved. cp
[2019-03-05 23:46] VITALS: TEMP 97.7
[2019-03-05 23:49] VITALS: O2SAT 99
[2019-03-05 23:51] VITALS: BP 118/76
--- NOTE | 2019-03-06 08:06 | RAD REPORT ---
EXAM DESCRIPTION: US - Transvaginal Study Probe - 03/05/2019 9:51 pm CLINICAL HISTORY: Pelvic pain with vaginal bleeding COMPARISON: none FINDINGS: The uterus measures 11 x 8 x 8cm. A pole is present within the endometrium with a cr own-rump length 3.5 centimeters. Cardiac activity 175 beats per minute. Gestational sac appears lexii l. The ovaries not visualized secondary to overlying bowel gas. Right and left adnexal unremarkable. No significant free fluid is seen. IMPRESSION: Single live intrauterine with an estimated gestational age 10 weeks 1 day JOSE 09/30/2019
== END 2019-03-05 23:30 | disposition home or self-care (01) ==
LOC: ER 18:53
DX: O20.0 Threatened abortion (principal)
CPT/HCPCS: 36415; 76830; 80048; 81003; 81015; 81025; 84702; 85025; 86900; 86901; 87086; 87088; 99284

== ENCOUNTER 2021-07-30 19:35 | Emergency (ER) | payer BC, OTHER ==
[2021-07-30] MEDS ORDERED: ACETAMINOPHEN 325 MG TABLET ONE (21:15)
[2021-07-30] MEDS ORDERED: NA CHLORIDE 0.9% 1,000 ML ONE (21:16)
[2021-07-30] MEDS ORDERED: ONDANSETRON 4 MG/2 ML VIAL ONE (21:16)
[2021-07-30] MEDS ORDERED: HYDROCODONE/APAP 5/325 MG TAB ONE (21:16)
--- NOTE | 2021-07-30 21:27 | RAD REPORT ---
EXAM DESCRIPTION: RAD - Foot Right 3 View - 07/30/2021 8:51 pm CLINICAL HISTORY: PAIN, fall with twisting injury COMPARISON: None FINDINGS: No fracture, dislocation or periosteal reaction. No air or foreign body in the soft tissues. IMPRESSION: Negative right foot examination.
[2021-07-30] MEDS ORDERED: HYDROCODONE/CHLORPHEN 5 ML/OSYR ONE (21:28)
--- NOTE | 2021-07-30 21:28 | RAD REPORT ---
EXAM DESCRIPTION: RAD - Ankle Right 3 View - 07/30/2021 8:51 pm CLINICAL HISTORY: PAIN, fall with twisting injury COMPARISON: No comparisons FINDINGS: No fracture, dislocation or periosteal reaction. No joint effusion seen. No joint space na rrowing. No soft tissue significant finding. IMPRESSION: Negative right ankle
[2021-07-30 22:25] LABS: SARS-COV-2 RT PCR NEGATIVE (NEGATIVE)
--- NOTE | 2021-07-30 22:39 | ER ---
Nurse's Notes [facility] Name: Ada Khanna Age: 30 yrs Sex: Female : 1990 Arrival Date: 07/30/2021 Time: 19:43 Bed 17 Private MD: Diagnosis: Influenza due to identified novel influenza A virus;Other sprain of right foot;Sprain of other ligament of right ankle Presentation: 07/30 20:01 Chief complaint: Patient states: I think I rolled my ankle, I tripped when I was vc1 walking. I was walking from the workshop and it goes down to some cement blocks and I tripped. Coronavirus screen: Vaccine status: Patient reports being unvaccinated. chills, congestion, cough unrelated to allergies, difficulty breathing, fatigue, headache, muscle pain, nausea, runny nose, shortness of breath, vomiting. itchy throat Client presents with at least one sign or symptom that may indicate coronavirus-19. Standard/surgical mask placed on the client. Provider contacted for isolation considerations. Ebola Screen: No symptoms or risks identified at this time. Onset of symptoms was July 30, 2021 at 08:00. Mechanism of Injury: Fall from standing position. 20:01 Method Of Arrival: Other vc1 20:01 Acuity: RICHARD 3 vc1 20:06 Initial Sepsis Screen: Does the patient meet any 2 criteria? RR > 20 per min. Initial vc1 Sepsis Screen: Does the patient meet any 2 criteria? HR > 90 bpm. Yes Does the patient have a suspected source of infection? Yes: Productive cough/pneumonia. Risk Assessment: Do you want to hurt yourself or someone else? Patient reports no desire to harm self or others. Triage Assessment: 20:04 General: Appears in no apparent distress. uncomfortable, ill, Behavior is calm, vc1 cooperative, appropriate for age. Pain: Complains of pain in right ankle and anterior aspect of right ankle Pain does not radiate. Pain currently is 9 out of 10 on a pain scale. Noted to be. Musculoskeletal: Range of motion: limited in right ankle Swelling present in right ankle. Injury Description: twisted, swelling, bruise. 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 Flu vaccine is not up to date. - Social history:: Smoking status: Patient denies any tobacco usage or history of. Screenin:04 Abuse screen: Denies threats or abuse. Nutritional screening: No deficits noted. sv1 Tuberculosis screening: No symptoms or risk factors identified. Fall Risk None identified. Assessment: 20:17 Reassessment: Provider notified, Sepsis protocol not indicated. vc1 Vital Signs: 20:06 BP 125 / 82; Pulse 107; Resp 23; Temp 99.5; Pulse Ox 98% on R/A; Weight 90.72 kg; vc1 Height 5 ft. 7 in. (170.18 cm); Pain 9/10; 20:18 Temp 102.0(O); vc1 23:04 BP 105 / 63 RA Supine (auto/reg); Pulse 104 MON; Resp 14 S; Temp 100.4; Pulse Ox 96% on sv1 R/A; 20:06 Body Mass Index 31.32 (90.72 kg, 170.18 cm) vc1 ED Course: 19:43 Patient arrived in ED. [id number] 20:04 Triage completed. vc1 20:04 Arm band placed on right wrist. vc1 20:11 Mickey Cantu NP is PHCP. pm1 20:11 Negrito Verma MD is Attending Physician. pm1 20:49 Reynaldo Cnorad, GHAZALA is Primary Nurse. sv1 20:51 Ankle Right 3 View XRAY In Process Unspecified. EDMS 20:51 Foot Right 3 View XRAY In Process Unspecified. EDMS 21:23 Strep Sent. sv1 21:23 COVID-19/FLU A+B (Document "Date of Onset" if Symptomatic) Sent. sv1 23:04 Patient has correct armband on for positive identification. sv1 23:04 No provider procedures requiring assistance completed. IV discontinued. sv1 Administered Medications: 20:19 CANCELLED (Physician Discretion): Ondansetron 4 mg PO once pm1 21:22 Drug: HYDROcodone-acetaminophen 5 mg-325 mg 1 tabs Route: PO; sv1 21:22 Drug: NS 0.9% 1000 ml Route: IV; Rate: 1000 ml; Site: left antecubital; sv1 : Drug: Zofran (Ondansetron) 4 mg Route: IVP; Site: left antecubital; sv1 : Drug: Tylenol 650 mg Route: PO; sv1 : Drug: Tussionex Pennkinetic ER (chlorpheniramine-hydrocodone) Suspension 5 ml Route: PO;sv1 Outcome: 22:38 Discharge ordered by . pm1 23:04 Discharged to home ambulatory. sv1 23:04 Condition: improved 23:04 Discharge instructions given to patient. 23:08 Patient left the ED. sv1 Signatures: Dispatcher [employer] EDMS Mickey Cantu NP EVENT DESIGNER pm1 Juanita Guzman [email or web address] Reynaldo Conrad RN RN sv1 Eloina Merino RN RN vc1
--- NOTE | 2021-07-30 22:39 | EDPHYS ---
Physician Documentation [facility] Name: Ada Khanna Age: 30 yrs Sex: Female : 1990 Arrival Date: 07/30/2021 Time: 19:43 Bed 17 Private MD: ED Physician Negrito Verma HPI: 07/30 20:20 This 30 yrs old Black Female presents to ER via Other with complaints of Left ankle and pm1 foot pain, Flu Symptoms. 20:20 The patient presents with pain, that is acute. The complaints affect the right ankle pm1 and dorsum of right foot. Context: resulted from a mis-step, the patient is not able to bear weight, the patient is not able to ambulate, Problem is a result from a previous injury: No. Onset: The symptoms/episode began/occurred today. Modifying factors: The symptoms are alleviated by elevating leg, the symptoms are aggravated by weight bearing. Associated signs and symptoms: Pertinent positives: swelling, of the right ankle lateral aspect, Pertinent negatives calf tenderness, fever, numbness, tingling. Treatment prior to arrival includes: no previous treatment. Severity of symptoms: in the emergency department the symptoms are unchanged. The patient has not experienced similar symptoms in the past. The patient has not recently seen a physician. patient's son at home with influenza. Patient with cough, fever, and flu symptoms. 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 Flu vaccine is not up to date. - Social history:: Smoking status: Patient denies any tobacco usage or history of. ROS: 20:20 Eyes: Negative for injury, pain, redness, and discharge, ENT: Negative for injury, pm1 pain, and discharge, Cardiovascular: Negative for chest pain, palpitations, and edema. 20:20 Abdomen/GI: Negative for abdominal pain, nausea, vomiting, diarrhea, and constipation, Back: Negative for injury and pain. 20:20 Skin: Negative for injury, rash, and discoloration, Neuro: Negative for headache, weakness, numbness, tingling, and seizure. 20:20 Constitutional: Positive for body aches, fever, Negative for poor PO intake. 20:20 Respiratory: Positive for cough, Negative for shortness of breath. 20:20 MS/extremity: Positive for pain, swelling, of the dorsum of right foot and right ankle, Negative for deformity. 20:20 All other systems are negative. Exam: 20:20 Skin: Warm, dry with normal turgor. Normal color with no rashes, no lesions, and no pm1 evidence of cellulitis. 20:20 Constitutional: The patient appears in no acute distress, alert, awake, comfortable, non-diaphoretic, non-toxic, well developed, well hydrated, well groomed, well nourished, febrile. 20:20 Cardiovascular: Rate: tachycardic, Rhythm: regular, Pulses: no pulse deficits are appreciated, Heart sounds: normal, normal S1and S2. 20:20 Respiratory: Exam negative for acute changes, respiratory distress, shortness of breath, Breath sounds: are clear throughout. 20:20 Abdomen/GI: Inspection: abdomen appears normal, Palpation: abdomen is soft and non-tender, in all quadrants. 20:20 Musculoskeletal/extremity: Extremities: grossly normal except: noted in the right ankle lateral aspect swelling and tenderness: noted in the dorsum of right foot: tenderness, no evidence of decreased ROM, deformity, swelling. 20:20 Neuro: Exam negative for acute changes, Orientation: is normal, Mentation: is normal, Motor: is normal, moves all fours. Vital Signs: 20:06 BP 125 / 82; Pulse 107; Resp 23; Temp 99.5; Pulse Ox 98% on R/A; Weight 90.72 kg; vc1 Height 5 ft. 7 in. (170.18 cm); Pain 9/10; 20:18 Temp 102.0(O); vc1 23:04 BP 105 / 63 RA Supine (auto/reg); Pulse 104 MON; Resp 14 S; Temp 100.4; Pulse Ox 96% on sv1 R/A; 20:06 Body Mass Index 31.32 (90.72 kg, 170.18 cm) vc1 MDM: 20:16 Patient medically screened. pm1 22:34 Data reviewed: vital signs. Data interpreted: Pulse oximetry: on room air is 98 %. pm1 Interpretation: normal. 22:34 Counseling: I had a detailed discussion with the patient and/or guardian regarding: the pm1 historical points, exam findings, and any diagnostic results supporting the discharge/admit diagnosis, lab results, radiology results, the need for outpatient follow up, a orthopedic surgeon, to return to the emergency department if symptoms worsen or persist or if there are any questions or concerns that arise at home. 07/30 20:16 Order name: COVID-19/FLU A+B (Document "Date of Onset" if Symptomatic); Complete Time: pm1 22:32 07/30 20:16 Order name: Strep; Complete Time: 22:32 pm1 07/30 20:15 Order name: Ankle Right 3 View XRAY; Complete Time: 21:39 pm1 07/30 20:15 Order name: Foot Right 3 View XRAY; Complete Time: 21:39 pm1 07/30 20:19 Order name: IV Saline Lock; Complete Time: 21:09 pm1 07/30 22:38 Order name: Crutches pm1 07/30 22:38 Order name: Aircast Ankle Splint pm1 Administered Medications: 20:19 CANCELLED (Physician Discretion): Ondansetron 4 mg PO once pm1 21:22 Drug: HYDROcodone-acetaminophen 5 mg-325 mg 1 tabs Route: PO; sv1 21:22 Drug: NS 0.9% 1000 ml Route: IV; Rate: 1000 ml; Site: left antecubital; sv1 21:22 Drug: Zofran (Ondansetron) 4 mg Route: IVP; Site: left antecubital; sv1 21:22 Drug: Tylenol 650 mg Route: PO; sv1 21:27 Drug: Tussionex Pennkinetic ER (chlorpheniramine-hydrocodone) Suspension 5 ml Route: PO;sv1 Disposition: 07/31 03:21 Co-signature as Attending Physician, Negrito Verma MD. [email or web address] Disposition Summary: 07/30/21 22:38 Discharge Ordered Location: Home pm1 Problem: new pm1 Symptoms: have improved pm1 Condition: Stable pm1 Diagnosis - Influenza due to identified novel influenza A virus pm1 - Other sprain of right foot pm1 - Sprain of other ligament of right ankle pm1 Followup: pm1 - With: Emergency Department - When: As needed - Reason: Worsening of condition Followup: pm1 - With: Private Physician - When: 2 - 3 days - Reason: Recheck today's complaints, Continuance of care, Re-evaluation by your physician Discharge Instructions: - Discharge Summary Sheet pm1 - Ankle Sprain pm1 - Cast or Splint Care, Adult pm1 - Foot Sprain pm1 - Crutch Use, Adult, [id number] pm1 - Influenza, Adult, [id number] pm1 Forms: - Medication Reconciliation Form pm1 - Thank You Letter pm1 - Antibiotic Education pm1 - Prescription Opioid Use pm1 - Work release form lp1 Prescriptions: - Tramadol 50 mg Oral Tablet - take 1 tablet by ORAL route every 8 hours as needed; 12 tablet; Refills: 0, pm1 Product Selection Permitted - Tamiflu 75 mg Oral Capsule - take 1 tablet by ORAL route every 12 hours for 5 days; 10 tablet; Refills: 0, pm1 Product Selection Permitted Signatures: Dispatcher [employer] EDAL Mickey Cantu NP AUTO BODY REPAIRER [employer] pm1 Negrito Verma MD MD 7 Reynaldo Conrad RN RN sv1 Eloina Merino RN RN vc1 Corrections: (The following items were deleted from the chart) 07/30 20:19 20:19 Ondansetron 4 mg PO once ordered. pm1 pm1
[2021-07-30 23:24] VITALS: BP 105/63; TEMP 100.4; O2SAT 96
== END 2021-07-30 23:08 | disposition home or self-care (01) ==
LOC: ER 19:35
DX: J10.1 Influenza due to other identified influenza virus with other respiratory manifestations (principal); S93.491A Sprain of other ligament of right ankle, initial encounter; S93.691A Other sprain of right foot, initial encounter; Z20.822 Contact with and (suspected) exposure to COVID-19
CPT/HCPCS: 87070; 87081; 0240U; 73630; 73610; 96374; 99283; J7030; J2405